=== PATIENT | female | born 1980 | race African-American/Black ===

== ENCOUNTER 2021-08-19 21:46 | Emergency (ER) | payer BC, OTHER ==
[2021-08-19 21:53] VITALS: BP 127/83; PULSE 83; TEMP 98.5; BMI 20.7
[2021-08-19] MEDS ORDERED: KETOROLAC TROMETHAMINE 30 MG/1 ML VIAL IM ONE (22:18)
[2021-08-19] MEDS ORDERED: LIDOCAINE 5% TOPICAL PATCH TP ONE (22:25)
[2021-08-20] MEDS ORDERED: LIDOCAINE PATCH REMOVAL MC ONE (22:00)
== END 2021-08-19 22:30 | disposition home or self-care (01) ==
LOC: JERFT 21:46
PROC: 3E0233Z Introduction of Anti-inflammatory into Muscle, Percutaneous Approach (ICD-10-PCS; principal; 2021-08-19)
DX: M54.41 Lumbago with sciatica, right side (principal); M54.42 Lumbago with sciatica, left side
CPT/HCPCS: 99284-25